=== PATIENT | male | born 1965 | race Caucasian/White ===

== ENCOUNTER 2020-02-26 06:19 | Day surgery (SDC) | payer OTHER ==
[2020-02-25 13:06] LABS: COVID AG,FIA SOURCE NASOPHARYNGEAL
[~2020-02-26] VITALS: Ht 160 cm; Wt 38.6 kg
[~2020-02-26 06:19] MED LIST: SODIUM CHLORIDE 0.9% 1,000 ML IV ONE; SODIUM CHLORIDE 0.9% 1,000 ML ONE
[2020-02-26] MEDS ORDERED: LIDOCAINE 4% 50 ML SOLUTION TP ONE (06:20)
[2020-02-26] MEDS ORDERED: LIDOCAINE 2% 30 ML JELLY TP ONE (06:20)
[2020-02-26] MEDS ORDERED: ALBUTEROL SULFATE 2.5 MG/0.5 ML NEB SOLUTION NEB ONE (06:20)
[2020-02-26] MEDS ORDERED: BENZOCAINE 20% 50 MCG/SPRAY 57 GM TP ONE (06:20)
[2020-02-26] MEDS ORDERED: FAMO40TA7 PO (06:58)
[2020-02-26] MEDS ORDERED: FLUT16H NASAL (06:58)
[2020-02-26] MEDS ORDERED: PRED10 PO (06:58)
[2020-02-26] MEDS ORDERED: MONT10TA26 PO (06:58)
[2020-02-26] MEDS ORDERED: FentaNYL CITRATE-PF 100 MCG/2 ML VIAL ONE (07:43)
[2020-02-26] MEDS ORDERED: MIDAZOLAM HCL 2 MG/2 ML VIAL ONE (07:43)
[2020-02-26] MEDS ORDERED: MethylPREDNISolone SOD SUCC 125 MG/2 ML VIAL IVP ONE (09:00)
[2020-02-26] MEDS ORDERED: MethylPREDNISolone SOD SUCC 125 MG/2 ML VIAL ONE (09:17)
[2020-02-26] MEDS ORDERED: OXYGEN THERAPY IH SCH (20:00)
== END 2020-02-26 10:40 | disposition home or self-care (01) ==
LOC: SURGERY 06:19
PROVIDERS: ATTEND Internal Medicine Critical Care Medicine
DX: J38.4 Edema of larynx (principal); B37.0 Candidal stomatitis; F17.210 Nicotine dependence, cigarettes, uncomplicated; Z88.0 Allergy status to penicillin
CPT/HCPCS: 31623; 31624; 71045; 87015; 87070; 87101; 87205; 87206; 87220; 87426; 88108; 88312; C9803; J2250; J2930; J3010; J7030; J7613; Z7610